=== PATIENT | female | born 1955 | race Caucasian/White ===

== ENCOUNTER 2017-08-01 19:43 | Emergency (ER) | payer BC ==
[2017-08-01 21:08] LABS: Urine Blood 1+ (NEG); Urine Glucose NEGATIVE (NEG); Urine Protein NEGATIVE (NEG); Urine pH 5.5 (5.0-7.0)
[2017-08-01 21:48] LABS: Absolute Lymphocytes (CBC) 1.9 K/uL (0.7-4.9); Absolute Monocytes 1.3 K/uL (0.1-1.3); Absolute Neutrophil 19.9 K/uL (1.8-8.0); Basophils % 0.2 % (0-1.3); Eosinophils % 1.4 % (0-4.4); Hematocrit 45.1 % (36.0-45.0); Lymphocytes % 8.1 % (15.3-44.8); MCH 31.1 pg (27.0-35.0); MCV 91.1 fL (80-100); MPV 8.4 fL (7.6-11.3); Monocytes % 5.7 % (3.3-12.3); RBC Red Blood Cell Count 4.95 M/uL (3.86-4.86)
[2017-08-01] MEDS ORDERED: MORPHINE 4 MG/ML SYR ONE (21:51)
[2017-08-01] MEDS ORDERED: ONDANSETRON 4 MG/2 ML VIAL ONE (21:52)
[2017-08-01] MEDS ORDERED: NA CHLORIDE 0.9% 1,000 ML ONE (21:52)
[2017-08-01] MEDS ORDERED: FAMOTIDINE 20 MG/2 ML VIAL IV ONE (21:52)
[2017-08-01 21:55] LABS: Potassium 3.2 mEq/L (3.6-5.0)
[2017-08-01 22:02] LABS: Albumin 4.4 g/dL (3.2-5.5); Bilirubin Direct 0.1 mg/dL (0-0.2); Bilirubin Total 0.3 mg/dL (0.3-1.2); Protein, Total 7.6 g/dL (6.0-8.3)
[2017-08-01 22:23] LABS: Blood Morphology Comment NOT SEEN (NOT SEEN); Platelet Estimate ADEQ
[2017-08-01] MEDS ORDERED: KETOROLAC 30 MG/ML INJ ONE (23:01)
[2017-08-01] MEDS ORDERED: LIDOCAINE VISCOUS 2% SOLN 15 ML UDC ONE (23:20)
[2017-08-01] MEDS ORDERED: MAGNE/ALUM HYDROXD 30 ML UCUP ONE (23:20)
[2017-08-02 00:16] LABS: Urine Bacteria 20-50 /HPF (<20); Urine Culture Reflex Order REFLEXED; Urine RBC <5 /HPF (NONE SEEN)
[2017-08-02] MEDS ORDERED: METRONIDAZOLE 500mg IVPB 500 MG/100 ML BAG IV ONE (00:37)
[2017-08-02] MEDS ORDERED: CIPROFLOXACIN 400mg IV 400 MG/200 ML BAG IV ONE (00:37)
[2017-08-02] MEDS ORDERED: MEPERIDINE HCL 25 MG/0.5 ML ONE (00:45)
--- NOTE | 2017-08-02 01:55 | EDPHYS ---
Physician Documentation [facility] Name: Yany Gil Age: 61 yrs Sex: Female : 1955 Arrival Date: 08/01/2017 Time: 19:49 Bed 5 Private MD: ED Physician Victoriano Khoury HPI: 08/01 21:40 This 61 yrs old Female presents to ER via Ambulatory with complaints of kdr Abdominal Pain, Flank Pain, Nausea/Vomiting. 21:40 The patient complains of pain in the left mid back. To left flank and upper abdomen. kdr Onset: The symptoms/episode began/occurred acutely, suddenly, just prior to arrival. Modifying factors: The symptoms are alleviated by nothing. the symptoms are aggravated by nothing. Associated signs and symptoms: Pertinent positives: diarrhea, nausea. Severity of pain: At its worst the pain was moderate severe just prior to arrival, in the emergency department the pain has improved. The patient has not experienced similar symptoms in the past. The patient has not recently seen a physician. Historical: - Allergies: 20:18 PENICILLINS; ak1 - Home Meds: 20:18 None [Active]; ak1 - PMHx: 20:18 None; ak1 - PSHx: 20:18 ; Appendectomy; Cholecystectomy; right leg sx; right hand sx; ak1 - Immunization history:: Adult Immunizations unknown. - Social history:: Smoking status: Patient uses tobacco products, smokes two packs cigarettes per day. - Ebola Screening: : No symptoms or risks identified at this time. ROS: 21:41 Constitutional: Negative for fever, chills, and weight loss, Eyes: Negative for injury, kdr pain, redness, and discharge, Neck: Negative for injury, pain, and swelling, Cardiovascular: Negative for chest pain, palpitations, and edema, Respiratory: Negative for shortness of breath, cough, wheezing, and pleuritic chest pain, : Negative for injury, bleeding, discharge, and swelling, MS/Extremity: Negative for injury and deformity, Skin: Negative for injury, rash, and discoloration, Neuro: Negative for headache, weakness, numbness, tingling, and seizure activity. Psych: Negative for depression, anxiety, suicide ideation, homicidal ideation, and hallucinations, Allergy/Immunology: Negative for hives, rash, and allergies, Endocrine: Negative for neck swelling, polydipsia, polyuria, polyphagia, and marked weight changes, Hematologic/Lymphatic: Negative for swollen nodes, abnormal bleeding, and unusual bruising. 21:41 Abdomen/GI: Positive for abdominal pain, nausea, vomiting, and diarrhea, Negative for abdominal cramps, abdominal distension, dysphagia, hematemesis, black/tarry stool, rectal pain, rectal bleeding, bowel incontinence. 21:41 Back: Positive for pain at rest, flank pain, on the left. Exam: 21:41 Constitutional: This is a well developed, well nourished patient who is awake, alert, kdr and in no acute distress. Head/Face: Normocephalic, atraumatic. Eyes: Pupils equal round and reactive to light, extra-ocular motions intact. Lids and lashes normal. Conjunctiva and sclera are non-icteric and not injected. Cornea within normal limits. Periorbital areas with no swelling, redness, or edema. Neck: Trachea midline, no thyromegaly or masses palpated, and no cervical lymphadenopathy. Supple, full range of motion without nuchal rigidity, or vertebral point tenderness. No Meningismus. Chest/axilla: Normal chest wall appearance and motion. Nontender with no deformity. No lesions are appreciated. Cardiovascular: Regular rate and rhythm with a normal S1 and S2. No gallops, murmurs, or rubs. Normal PMI, no JVD. No pulse deficits. Respiratory: Lungs have equal breath sounds bilaterally, clear to auscultation and percussion. No rales, rhonchi or wheezes noted. No increased work of breathing, no retractions or nasal flaring. Skin: Warm, dry with normal turgor. Normal color with no rashes, no lesions, and no evidence of cellulitis. MS/ Extremity: Pulses equal, no cyanosis. Neurovascular intact. Full, normal range of motion. Neuro: Awake and alert, GCS 15, oriented to person, place, time, and situation. Cranial nerves II-XII grossly intact. Motor strength 5/5 in all extremities. Sensory grossly intact. Cerebellar exam normal. Normal gait. Psych: Awake, alert, with orientation to person, place and time. Behavior, mood, and affect are within normal limits. 21:41 Abdomen/GI: Inspection: obese Bowel sounds: diminished, in all quadrants, Palpation: soft, mild abdominal tenderness, in the epigastric area, posterior aspect of left lateral abdomen, anterior aspect of left lateral abdomen, right upper quadrant and left upper quadrant, rebound tenderness, is not appreciated. Vital Signs: 20:18 BP 138 / 100; Pulse 103; Resp 18; Temp 98.7(TE); Pulse Ox 98% on R/A; Weight 58.97 kg ak1 (R); Height 5 ft. 0 in. (152.40 cm) (R); Pain 10/10; 21:36 BP 130 / 77; Pulse 92; Resp 16; Pulse Ox 99% on R/A; Pain 8/10; ao 22:35 BP 128 / 76; Pulse 82; Resp 16; Pulse Ox 100% ; Pain 0/10; ao 23:28 BP 132 / 76; Pulse 88; Resp 18; Pulse Ox 99% on R/A; ao 08/02 00:26 BP 135 / 81; Pulse 82; Resp 18; Pulse Ox 100% on R/A; ao 08/01 20:18 Body Mass Index 25.39 (58.97 kg, 152.40 cm) ak MDM: 08/01 21:41 Data reviewed: vital signs, nurses notes, lab test result(s). Counseling: I had a kdr detailed discussion with the patient and/or guardian regarding: the historical points, exam findings, and any diagnostic results supporting the discharge/admit diagnosis, lab results, radiology results. 21:46 Patient medically screened. [facility] 08/02 02:19 ED course: I discussed with the patient the need for admission. Labs and ct imaging [facility] findings were discussed. The patient refused admission. signed out against medical advice. patient given strict return precautions. patient understood. 08/01 20:28 Order name: Urine Dipstick--Ancillary (enter results); Complete Time: 22:56 [facility] 08/01 20:59 Order name: Amylase, Serum; Complete Time: 22:56 [facility] 08/01 20:59 Order name: Basic Metabolic Panel; Complete Time: 22:56 [facility] 08/01 20:59 Order name: CBC with Diff; Complete Time: 22:56 [facility] 08/01 20:59 Order name: Creatinine for Radiology; Complete Time: 22:56 [facility] 08/01 20:59 Order name: Hepatic Function; Complete Time: 22:56 [facility] 08/01 20:59 Order name: Lipase; Complete Time: 22:56 kdr 08/01 20:59 Order name: Urine Microscopic Only; Complete Time: 00:30 kdr 08/01 21:39 Order name: CT Stone Protocol [facility] 08/01 22:23 Order name: Manual Differential; Complete Time: 22:56 [facility] 08/02 00:17 Order name: Urine Culture [facility] 08/01 20:28 Order name: Urine Dipstick-Ancillary (obtain specimen); Complete Time: 20:28 ak 08/01 20:59 Order name: IV Saline Lock; Complete Time: 21:34 kdr 08/01 20:59 Order name: Labs collected and sent; Complete Time: 21:34 kdr Administered Medications: 08/01 22:00 Drug: NS 0.9% 1000 ml Route: IV; Rate: 1 bolus; Site: right forearm; ao 23:22 Follow up: IV Status: Completed infusion; IV Intake: 1000ml ao 22:00 Drug: Pepcid 20 mg Route: IVP; Site: right forearm; ao 23:22 Follow up: Response: No adverse reaction ao 22:02 Drug: morphine 4 mg Route: IVP; Site: right forearm; ao 23:22 Follow up: Response: No adverse reaction; Pain is unchanged, physician notified ao 22:06 Drug: Zofran 4 mg Route: IVP; Site: right forearm; ao 23:22 Follow up: Response: No adverse reaction ao 23:21 Drug: Ketorolac 30 mg Route: IVP; Site: right forearm; ao 08/02 00:39 Follow up: Response: No adverse reaction ao 08/01 23:22 Drug: GI Cocktail without - (Maalox Suspension 30 ml, Lidocaine Liquid 2 % 15 ao ml) Route: PO; 08/02 00:39 Follow up: Response: No adverse reaction ao 00:38 Drug: Cipro 400 mg Volume: 200 ml; Route: IVPB; Infused Over: 60 mins; Site: right ao forearm; 02:00 Follow up: IV Status: Completed infusion; IV Intake: 200ml ao 00:52 Drug: Flagyl 500 mg Volume: 100 ml; Route: IVPB; Rate: 200 ml/hr; Infused Over: 30 ao mins; Site: right forearm; 03:00 Follow up: IV Status: Completed infusion; IV Intake: 100ml ao 00:53 Drug: Demerol 25 mg Route: IVP; Site: right forearm; ao 03:00 Follow up: Response: No adverse reaction ao Disposition: 08/02/17 01:55 Patient has left against medical advice. - Patients states they are going to Home. - Condition is Stable. - Discharge Instructions: Diverticulitis. - Prescriptions for Flagyl 500 mg Oral Tablet - take 1 tablet by ORAL route every 6 hours for 10 days; 40 tablet. Cipro 500 mg Oral Tablet - take 1 tablet by ORAL route every 12 hours for 7 days; 20 tablet. Tramadol 50 mg Oral Tablet - take 1 tablet by ORAL route every 8 hours as needed; 12 tablet. Addendum: 08/03/2017 07:58 Co-signature as Attending Physician, Victoriano Khoury MD I agree with the assessment and k dr plan of care. Signatures: Dispatcher [employer] EDVictoriano Quan MD MD kdr Eron Lo PA PA jmm Krenek, Amber, RN RN ak1 Christopher Larson RN RN ao Corrections: (The following items were deleted from the chart) 08/02 01:55 01:55 08/02/2017 01:55 Patients has left against medical advice. Patient states they ao are going to Home. Condition is Stable. Discharge Instructions: Diverticulitis. Prescriptions for Flagyl 500 mg Oral Tablet - take 1 tablet by ORAL route every 6 hours for 10 days; 40 tablet, Cipro 500 mg Oral Tablet - take 1 tablet by ORAL route every 12 hours for 7 days; 20 tablet, Tramadol 50 mg Oral Tablet - take 1 tablet by ORAL route every 8 hours as needed; 12 tablet ao
--- NOTE | 2017-08-02 01:55 | ER ---
Nurse's Notes [facility] Name: Yany Gil Age: 61 yrs Sex: Female : 1955 Arrival Date: 08/01/2017 Time: 19:49 Bed 5 Private MD: Diagnosis: Presentation: 08/01 20:17 Presenting complaint: Patient states: left flank pain started at 1530. pt stated she ak1 vomited once and began having abd cramps. no vomiting noted in triage or ER lobby. Transition of care: patient was not received from another setting of care. Onset of symptoms was August 01, 2017 at 15:30. Risk Assessment: Do you want to hurt yourself or someone else? Patient reports no desire to harm self or others. Initial Sepsis Screen: Does the patient meet any 2 criteria? No. Patient's initial sepsis screen is negative. Does the patient have a suspected source of infection? No. Patient's initial sepsis screen is negative. Care prior to arrival: None. 20:17 Method Of Arrival: Ambulatory ak1 20:17 Acuity: BAR 3 ak1 Triage Assessment: 20:18 General: Appears in no apparent distress. Behavior is calm, cooperative. Pain: ak1 Complains of pain in abd, left flank. EENT: No signs and/or symptoms were reported regarding the EENT system. Neuro: No deficits noted. Cardiovascular: No deficits noted. Respiratory: No deficits noted. GI: Abdomen is round Reports lower abdominal pain, upper abdominal pain, cramping, nausea, vomiting. : Reports pain in left flank(s). Derm: No signs and/or symptoms reported regarding the dermatologic system. Musculoskeletal: No signs and/or symptoms reported regarding the musculoskeletal system. Historical: - Allergies: 20:18 PENICILLINS; ak1 - Home Meds: 20:18 None [Active]; ak1 - PMHx: 20:18 None; ak1 - PSHx: 20:18 ; Appendectomy; Cholecystectomy; right leg sx; right hand sx; ak1 - Immunization history:: Adult Immunizations unknown. - Social history:: Smoking status: Patient uses tobacco products, smokes two packs cigarettes per day. - Ebola Screening: : No symptoms or risks identified at this time. Screenin:20 Abuse screen: Denies threats or abuse. Denies injuries from another. Nutritional ak1 screening: No deficits noted. Tuberculosis screening: No symptoms or risk factors identified. Fall Risk None identified. Assessment: 21:34 General: Appears in no apparent distress. uncomfortable, Behavior is calm, cooperative, ao appropriate for age. Pain: Complains of pain in back Pain currently is 8 out of 10 on a pain scale. Neuro: Level of Consciousness is awake, alert, obeys commands, Oriented to person, place, time, situation, Appropriate for age Moves all extremities. Speech is normal, Facial symmetry appears normal. Cardiovascular: Capillary refill < 3 seconds Patient's skin is warm and dry. Respiratory: Airway is patent Respiratory effort is even, unlabored, Respiratory pattern is regular, symmetrical. GI: Bowel sounds present X 4 quads. Abd is soft and non tender X 4 quads. Abd is non tender Reports nausea, vomiting, since 1600. : No signs and/or symptoms were reported regarding the genitourinary system. EENT: No signs and/or symptoms were reported regarding the EENT system. Derm: Skin is pink, warm \T\ dry. Skin temperature is warm. Musculoskeletal: Circulation, motion, and sensation intact. Range of motion: intact in all extremities. 22:35 Reassessment: Patient appears in no apparent distress at this time. Patient and/or ao family updated on plan of care and expected duration. Pain level reassessed. Patient is alert, oriented x 3, equal unlabored respirations, skin warm/dry/pink. Patient CO headache after she got Morphine. 23:26 Reassessment: Patient appears in no apparent distress at this time. Patient and/or ao family updated on plan of care and expected duration. Pain level reassessed. Patient is alert, oriented x 3, equal unlabored respirations, skin warm/dry/pink. Patient denies headache at this time. 0612 00:26 Reassessment: Patient appears in no apparent distress at this time. Patient and/or ao family updated on plan of care and expected duration. Pain level reassessed. Patient is alert, oriented x 3, equal unlabored respirations, skin warm/dry/pink. Waiting on providers dispo. 00:39 Reassessment: RENITA Mora at bedside talking to patient. Patient stated that she is not ao able to stay in the hospital and needs to be discharge. Patient agree to get antibiotics and leave AMA. 01:29 Reassessment: Patient appears in no apparent distress at this time. Patient and/or ao family updated on plan of care and expected duration. Pain level reassessed. Patient is alert, oriented x 3, equal unlabored respirations, skin warm/dry/pink. Waiting on Antibiotic to be complete before patient can let go. Vital Signs: 08/01 20:18 BP 138 / 100; Pulse 103; Resp 18; Temp 98.7(TE); Pulse Ox 98% on R/A; Weight 58.97 kg ak1 (R); Height 5 ft. 0 in. (152.40 cm) (R); Pain 10/10; 21:36 BP 130 / 77; Pulse 92; Resp 16; Pulse Ox 99% on R/A; Pain 8/10; ao 22:35 BP 128 / 76; Pulse 82; Resp 16; Pulse Ox 100% ; Pain 0/10; ao 23:28 BP 132 / 76; Pulse 88; Resp 18; Pulse Ox 99% on R/A; ao 08/02 00:26 BP 135 / 81; Pulse 82; Resp 18; Pulse Ox 100% on R/A; ao 08/01 20:18 Body Mass Index 25.39 (58.97 kg, 152.40 cm) ak1 ED Course: 08/01 19:49 Patient arrived in ED. es 20:18 Triage completed. ak1 20:18 Arm band placed on Patient placed in waiting room, Patient notified of wait time. Urine ak1 obtained. 20:59 Victoriano Khoury MD is Attending Physician. kdr 21:12 Christopher Larson, RN is Primary Nurse. ao 21:37 Patient has correct armband on for positive identification. Pulse ox on. NIBP on. ao 21:45 Eron Lo PA is PHCP. kdr 21:52 Notified Nurse Practitioner and/or Physician Clinical Laboratory Technologist of a critical lab result(s), wbc fc of 23.5. 22:00 Inserted saline lock: 22 gauge in right forearm, using aseptic technique. ao 22:[address] via stretcher. eh 22:27 CT completed. Patient tolerated procedure well. Patient moved back from CT. eh 22:31 CT Stone Protocol In Process Unspecified. EDMS 08/02 01:54 No provider procedures requiring assistance completed. IV discontinued, intact, ao bleeding controlled, No redness/swelling at site. Pressure dressing applied. Administered Medications: 08/01 22:00 Drug: NS 0.9% 1000 ml Route: IV; Rate: 1 bolus; Site: right forearm; ao 23:22 Follow up: IV Status: Completed infusion; IV Intake: 1000ml ao 22:00 Drug: Pepcid 20 mg Route: IVP; Site: right forearm; ao 23:22 Follow up: Response: No adverse reaction ao 22:02 Drug: morphine 4 mg Route: IVP; Site: right forearm; ao 23:22 Follow up: Response: No adverse reaction; Pain is unchanged, physician notified ao 22:06 Drug: Zofran 4 mg Route: IVP; Site: right forearm; ao 23:22 Follow up: Response: No adverse reaction ao 23:21 Drug: Ketorolac 30 mg Route: IVP; Site: right forearm; ao 08/02 00:39 Follow up: Response: No adverse reaction ao 08/01 23:22 Drug: GI Cocktail without - (Maalox Suspension 30 ml, Lidocaine Liquid 2 % 15 ao ml) Route: PO; 08/02 00:39 Follow up: Response: No adverse reaction ao 00:38 Drug: Cipro 400 mg Volume: 200 ml; Route: IVPB; Infused Over: 60 mins; Site: right ao forearm; 02:00 Follow up: IV Status: Completed infusion; IV Intake: 200ml ao 00:52 Drug: Flagyl 500 mg Volume: 100 ml; Route: IVPB; Rate: 200 ml/hr; Infused Over: 30 ao mins; Site: right forearm; 03:00 Follow up: IV Status: Completed infusion; IV Intake: 100ml ao 00:53 Drug: Demerol 25 mg Route: IVP; Site: right forearm; ao 03:00 Follow up: Response: No adverse reaction ao Intake: 08/01 23:22 IV: 1000ml; Total: 1000ml. ao 08/02 02:00 IV: 200ml; Total: 1200ml. ao 03:00 IV: 100ml; Total: 1300ml. ao Outcome: 01:54 AMA AMA form signed ao 01:54 Condition: stable 01:54 Discharge instructions given to patient, Instructed on discharge instructions, follow up and referral plans. Demonstrated understanding of instructions, follow-up care, medications, Prescriptions given X 2. 01:55 Patient left the ED. ao Signatures: Dispatcher [employer] Victoriano Garcia MD MD kdr Mickail, Joel, PA PA jmm Salyer, Edna es Hagler, Ervin eh Chretien, Felicia RN RN Jerri Richards RN RN ak1 Christopher Larson RN RN ao Corrections: (The following items were deleted from the chart) 08/01 21:53 21:52 Notified ED physician of a critical lab result(s). wbc of 23.5 [facility] 23:28 21:35 BP 132 / 76; Pulse 88bpm; Resp 18bpm; Pulse Ox 99% RA; ao ao
[2017-08-02 04:19] VITALS: TEMP 98.7
[2017-08-02 04:24] VITALS: BP 135/81; O2SAT 100
--- NOTE | 2017-08-02 08:15 | RAD REPORT ---
EXAM DESCRIPTION: CT - Stone Protocol - 08/02/2017 3:38 am CLINICAL HISTORY: Abdominal pain. Left flank pain and vomiting COMPARISON: None. TECHNIQUE: Computed axial tomography of the abdomen pelvis was obtained without oral or IV contrast. Lack of IV and oral contrast limits evaluation of solid organs, bowel, and vessels. Coronal reformat ronan images were obtained and reviewed. A preliminary report was generated by [employer] and reviewed prior to this dictation All CT scans are performed using dose optimization technique as appropriate and may include automated exposure control or mA/KV adjustment according to patient size. FINDINGS: A renal calculus is not seen. An ureteral calculus is not noted. A bladder calculus is not present. The liver, spleen, pancreas and adrenals appear grossly normal. The gallbladder has been removed Diverticula stem from the colon. There is minimal stranding adjacent to the sigmoid colon. An umbilical hernia is present. The neck measures 2 centimeters. Atherosclerotic changes involve the arteries. IMPRESSION: Negative for a genitourinary calculus Minimal sigmoid diverticulitis
== END 2017-08-02 01:55 | disposition left against medical advice (07) ==
LOC: ER 19:43
DX: R10.9 Unspecified abdominal pain (principal); R11.0 Nausea; R19.7 Diarrhea, unspecified; F17.210 Nicotine dependence, cigarettes, uncomplicated; Z88.0 Allergy status to penicillin
CPT/HCPCS: 36415; 74176; 76377; 80048; 80076; 81003; 81015; 82150; 83690; 85025; 87086; 87088; 96361; 96365; 96366; 96368; 96375; 99284; J0744; J2175; J2405; J7030

== ENCOUNTER 2017-08-12 17:21 | Observation (INO) | payer BC ==
[2017-08-12 18:19] LABS: Urine Blood NEGATIVE (NEG); Urine Glucose NEGATIVE (NEG); Urine Protein NEGATIVE (NEG); Urine Specific Gravity >1.030 (1.005-1.030)
[2017-08-12] MEDS ORDERED: FENTANYL CITR 100 MCG/2 ML ONE (19:22)
[2017-08-12] MEDS ORDERED: ONDANSETRON 4 MG/2 ML VIAL ONE (19:22)
[2017-08-12] MEDS ORDERED: NA CHLORIDE 0.9% 500 ML ONE (19:22)
[2017-08-12] MEDS ORDERED: FAMOTIDINE 20 MG/2 ML VIAL IV ONE (19:23)
[2017-08-12 19:25] LABS: RBC Red Blood Cell Count 4.62 M/uL (3.86-4.86)
[2017-08-12 19:35] LABS: Absolute Monocytes 0.8 K/uL (0.1-1.3); Absolute Neutrophil 5.9 K/uL (1.8-8.0); Hematocrit 42.2 % (36.0-45.0); MCV 91.3 fL (80-100); MPV 8.3 fL (7.6-11.3); Monocytes % 7.5 % (3.3-12.3)
[2017-08-12 19:39] LABS: Urine Bacteria <20 /HPF (<20); Urine Culture Reflex Order NOT NEEDED; Urine RBC <5 /HPF (NONE SEEN)
[2017-08-12 19:41] LABS: ALT/SGPT 25 U/L (12-78); AST/SGOT 16 U/L (15-37); Alkaline Phosphatase 86 U/L (45-117); Amylase Level 32 U/L (25-115); BUN Blood Urea Nitrogen 9 mg/dL (7-18); Bicarbonate 28 mmol/L (21-32); Bilirubin Direct < 0.1 mg/dL (0-0.2); Bilirubin Total 0.2 mg/dL (0.2-1.0); Glucose Level 93 mg/dL (74-106); Lipase 101 U/L (73-393); Magnesium 2.3 mg/dL (1.8-2.4); Potassium 3.5 mmol/L (3.5-5.1); Protein, Total 7.4 g/dL (6.4-8.2); Sodium Level 138 mmol/L (136-145)
--- NOTE | 2017-08-12 21:27 | RAD REPORT ---
EXAM DESCRIPTION: CTAbdomen Pelvis W Contrast - 08/12/2017 9:17 pm CLINICAL HISTORY: Abdominal pain. upper abdomen pain, mid back pain COMPARISON: Stone Protocol dated 08/01/2017 TECHNIQUE: Biphasic CT imaging of the abdomen and pelvis was performed with 100 ml non-ionic IV cont rast. All CT scans are performed using dose optimization technique as appropriate and may include automated exposure control or mA/KV adjustment according to patient size. FINDINGS: The lung bases are clear.Cholecystectomy clips. The liver, spleen, pancreas, adrenal glands and kidneys are within normal limits. No bowel obstruction, free air, free fluid or abscess. Mild sigmoid diverticulosis without diverticul itis. Appendectomy. Small fat containing umbilical hernia. No evidence of significant lymphadenopathy . Postsurgical changes are present at the lumbosacral junction. IMPRESSION: No acute intra-abdominal or pelvic finding.
[2017-08-12] MEDS ORDERED: METRONIDAZOLE 500mg IVPB 500 MG/100 ML BAG IV ONE (21:44)
--- NOTE | 2017-08-12 22:18 | ER ---
Nurse's Notes [facility] Name: Yany Gil Age: 61 yrs Sex: Female : 1955 Arrival Date: 08/12/2017 Time: 17:23 Bed 20 Private MD: None, None Diagnosis: Diverticular disease of intestine, part unspecified, without perforation or abscess;Other abdominal pain-Intractable Presentation: 08/12 17:52 Presenting complaint: Patient states: epigastric pain and back pain x 1 day. c/o iw vomiting. Transition of care: patient was not received from another setting of care. Onset of symptoms was August 11, 2017. Risk Assessment: Do you want to hurt yourself or someone else? Patient reports no desire to harm self or others. Care prior to arrival: None. 17:52 Method Of Arrival: Ambulatory iw 17:52 Acuity: BAR 3 iw 19:48 Initial Sepsis Screen: Does the patient meet any 2 criteria? No. Patient's initial jd3 sepsis screen is negative. Does the patient have a suspected source of infection? No. Patient's initial sepsis screen is negative. Historical: - Allergies: 17:53 PENICILLINS; iw - PMHx: 17:53 Diverticulitis; iw - PSHx: 17:53 ; Appendectomy; Cholecystectomy; right leg sx; right hand sx; iw - Immunization history:: Adult Immunizations up to date. - Social history:: Smoking status: Patient uses tobacco products, smokes one pack cigarettes per day. - Ebola Screening: : No symptoms or risks identified at this time. Screenin:49 Abuse screen: Denies threats or abuse. Nutritional screening: No deficits noted. jd3 Tuberculosis screening: No symptoms or risk factors identified. Fall Risk IV access (20 points). Ambulatory Aid- None/Bed Rest/Nurse Assist (0 pts). Gait- Normal/Bed Rest/Wheelchair (0 pts) Mental Status- Oriented to own ability (0 pts). Total Ramirez Fall Scale indicates No Risk (0-24 pts). Assessment: 19:20 General: Appears uncomfortable, Behavior is calm, cooperative, appropriate for age. jd3 Pain: Complains of pain in back and abdomen Pain at worst was 10 out of 10 on a pain scale. Quality of pain is described as aching, sharp, Is continuous, Also complains of nausea. Neuro: Level of Consciousness is awake, alert, obeys commands, Oriented to person, place, time, situation. Cardiovascular: Heart tones S1 S2 present Capillary refill < 3 seconds Patient's skin is warm and dry. Rhythm is regular. Respiratory: Airway is patent Respiratory effort is even, unlabored, Respiratory pattern is regular, symmetrical, Breath sounds are clear bilaterally. GI: Abdomen is round Bowel sounds present X 4 quads. Abd is soft X 4 quads Abdomen is tender to palpation. : No signs and/or symptoms were reported regarding the genitourinary system. EENT: No signs and/or symptoms were reported regarding the EENT system. Derm: Skin is intact, Skin is dry, Skin is normal, Skin temperature is warm. Musculoskeletal: Circulation, motion, and sensation intact. Range of motion: intact in all extremities. 19:39 Reassessment: CT notified of pt finishing contrast. jd3 20:28 Reassessment: Patient appears in no apparent distress at this time. Patient and/or jd3 family updated on plan of care and expected duration. Pain level reassessed. Patient is alert, oriented x 3, equal unlabored respirations, skin warm/dry/pink. 21:48 Reassessment: Patient appears in no apparent distress at this time. Patient and/or jd3 family updated on plan of care and expected duration. Pain level reassessed. Patient is alert, oriented x 3, equal unlabored respirations, skin warm/dry/pink. 22:45 Reassessment: Patient appears in no apparent distress at this time. Patient and/or jd3 family updated on plan of care and expected duration. Pain level reassessed. Patient is alert, oriented x 3, equal unlabored respirations, skin warm/dry/pink. 23:31 Reassessment: Patient appears in no apparent distress at this time. Patient and/or jd3 family updated on plan of care and expected duration. Pain level reassessed. Patient is alert, oriented x 3, equal unlabored respirations, skin warm/dry/pink. 08/13 00:33 Reassessment: Patient appears in no apparent distress at this time. Patient and/or jd3 family updated on plan of care and expected duration. Pain level reassessed. Patient is alert, oriented x 3, equal unlabored respirations, skin warm/dry/pink. pt reported understanding of need for admission, cardiac technician took pt to floor via wheelchair. Vital Signs: 08/12 17:53 BP 135 / 97; Pulse 73; Resp 18; Temp 98.6; Pulse Ox 98% ; Weight 58.97 kg; Height 5 ft. iw 0 in. (152.40 cm); Pain 10/10; 20:27 BP 147 / 79; Pulse 63; Resp 16 S; Pulse Ox 99% on R/A; Pain 10/10; jd3 21:48 BP 155 / 84; Pulse 67; Resp 16 S; Pulse Ox 99% on R/A; jd3 23:30 BP 150 / 80; Pulse 67; Resp 18 S; Pulse Ox 100% on R/A; jd3 17:53 Body Mass Index 25.39 (58.97 kg, 152.40 cm) iw ED Course: 17:23 Patient arrived in ED. mr 17:24 None, None is Private Physician. mr 17:52 Triage completed. iw 17:53 Arm band placed on left wrist. iw 18:18 Greg Gaona PA is PHCP. cp 18:18 Remy Wilson MD is Attending Physician. cp 19:02 Gabriel Sarmiento RN is Primary Nurse. jd3 19:13 Inserted saline lock: 22 gauge in right forearm, using aseptic technique. Blood jd3 collected. 19:48 Patient has correct armband on for positive identification. Bed in low position. Call jd3 light in reach. Side rails up X 1. Adult w/ patient. 21:16 CT Abd/Pelvis - W/Contrast: may give oral contrast In Process Unspecified. EDMS 21:[address] via stretcher. eh 22:17 Manuel Rosario MD is Hospitalizing Provider. cp 23:31 No provider procedures requiring assistance completed. Patient admitted, IV remains in jd3 place. Administered Medications: 19:24 Not Given (Physician Discretion): morphine 2 mg IVP once jd3 19:25 Drug: NS 0.9% 500 ml Route: IV; Rate: bolus; Site: right forearm; jd3 21:52 Follow up: Response: No adverse reaction; IV Status: Completed infusion; IV Intake: jd3 500ml 19:25 Drug: Zofran 4 mg Route: IVP; Site: right forearm; jd3 21:52 Follow up: Response: No adverse reaction jd3 19:25 Drug: Pepcid 20 mg Route: IVP; Site: right forearm; jd3 21:53 Follow up: Response: No adverse reaction jd3 19:25 Drug: fentaNYL (PF) 25 mcg Route: IVP; Site: right forearm; jd3 21:53 Follow up: Response: No adverse reaction jd3 20:50 Drug: fentaNYL (PF) 25 mcg Route: IVP; Site: right forearm; jd3 21:53 Follow up: Response: No adverse reaction jd3 21:47 Drug: metroNIDAZOLE 500 mg Volume: 100 ml; Route: IVPB; Infused Over: 30 mins; Site: jd3 right forearm; 23:08 Follow up: Response: No adverse reaction; IV Status: Completed infusion jd3 22:14 CANCELLED (Physician Discretion): NS 0.9% 1000 ml IV at 125 ml/hr continuous cp 23:05 Drug: Demerol 25 mg Route: IVP; Site: right forearm; jd3 23:32 Follow up: Response: No adverse reaction; Pain is decreased jd3 23:07 Drug: NS 0.9% 1000 ml Route: IV; Rate: 100 ml/hr; Site: right forearm; jd3 23:32 Follow up: Response: No adverse reaction; IV Status: Infusion continued upon admission jd3 23:07 Drug: LevaQUIN 500 mg Volume: 100 ml; Route: IVPB; Infused Over: 60 mins; Site: right jd3 forearm; 08/13 00:35 Follow up: Response: No adverse reaction; IV Status: Completed infusion jd3 Intake: 08/12 21:52 IV: 500ml; Total: 500ml. jd3 Outcome: 22:18 Decision to Hospitalize by Provider. cp 23:54 Admitted to Med/surg accompanied by tech, via wheelchair, room 210, with chart, Report jd3 called to Claudio DONNELLY 23:54 Condition: stable 23:54 Instructed on the need for admit, Demonstrated understanding of instructions. 08/13 00:35 Patient left the ED. jd3 Signatures: Dispatcher [facility] Yanira Simms Ervin eh Williams, Irene, RN RN iw Page, Corey, PA PA cp Davies, Jonathon, RN RN jonofre Corrections: (The following items were deleted from the chart) 08/12 17:52 17:52 Presenting complaint: Patient states: epigastric pain and back pain x 1 day. iw 19:54 19:[address] via stretcher. [facility]
--- NOTE | 2017-08-12 22:18 | EDPHYS ---
Physician Documentation [facility] Name: Yany Gil Age: 61 yrs Sex: Female : 1955 Arrival Date: 08/12/2017 Time: 17:23 Bed 20 Private MD: None, None ED Physician Remy Wilson HPI: 08/12 18:20 This 61 yrs old Female presents to ER via Ambulatory with complaints of cp Abdominal Pain, Back Pain. 18:20 The patient presents with abdominal pain in the upper abdomen. cp 18:20 Onset: The symptoms/episode began/occurred over 1 week ago, became worse today with cp episode of vomiting. 18:20 Associated signs and symptoms: Pertinent negatives: chest pain, constipation, diarrhea, cp dysuria, fever, hematuria, vomiting blood. 18:20 The symptoms are described as achy, sharp. cp 18:20 Modifying factors: the symptoms are aggravated by pressure. The patient has been cp recently seen at the [facility] Emergency Department, last week, for similar complaints labs were performed, CT scan was performed, diagnosed with diverticulitis. Patient reports she refused admission at that time and was prescribed oral cipro and metronidazole. Patient reports worsening pain today, not being able to eat for past several days. Historical: - Allergies: 17:53 PENICILLINS; iw - PMHx: 17:53 Diverticulitis; iw - PSHx: 17:53 ; Appendectomy; Cholecystectomy; right leg sx; right hand sx; iw - Immunization history:: Adult Immunizations up to date. - Social history:: Smoking status: Patient uses tobacco products, smokes one pack cigarettes per day. - Ebola Screening: : No symptoms or risks identified at this time. ROS: 18:28 Constitutional: Negative for body aches, chills, fever, poor PO intake. cp 18:28 Eyes: Negative for injury, pain, redness, and discharge. cp 18:28 ENT: Negative for drainage from ear(s), ear pain, sore throat, difficulty swallowing, difficulty handling secretions. 18:28 Cardiovascular: Negative for chest pain, edema, palpitations. 18:28 Respiratory: Negative for cough, shortness of breath, wheezing. 18:28 Abdomen/GI: Positive for abdominal pain, nausea, vomiting, anorexia, Negative for diarrhea, constipation, dysphagia, hematemesis, black/tarry stool, rectal bleeding. 18:28 Back: Positive for pain at rest, of the mid back area. 18:28 : Negative for urinary symptoms. 18:28 Skin: Negative for cellulitis, rash. 18:28 Neuro: Negative for altered mental status, dizziness, headache, syncope, near syncope, weakness. 18:28 All other systems are negative. Exam: 18:30 Constitutional: The patient appears in no acute distress, alert, awake, cp non-diaphoretic, non-toxic, well developed, well nourished. 18:30 Head/Face: Normocephalic, atraumatic. Eyes: Pupils equal round and reactive to light, cp extra-ocular motions intact. Lids and lashes normal. Conjunctiva and sclera are non-icteric and not injected. Cornea within normal limits. Periorbital areas with no swelling, redness, or edema. ENT: Nares patent. No nasal discharge, no septal abnormalities noted. Tympanic membranes are normal and external auditory canals are clear. Oropharynx with no redness, swelling, or masses, exudates, or evidence of obstruction, uvula midline. Mucous membranes moist. Chest/axilla: Normal chest wall appearance and motion. Nontender with no deformity. No lesions are appreciated. 18:30 Cardiovascular: Rate: normal, Rhythm: regular, Edema: is not appreciated, JVD: is not appreciated. 18:30 Respiratory: the patient does not display signs of respiratory distress, Respirations: normal, no use of accessory muscles, no retractions, no splinting, no tachypnea, labored breathing, is not present, Breath sounds: are clear throughout, no decreased breath sounds, no stridor, no wheezing. 18:30 Abdomen/GI: Inspection: abdomen appears normal, Bowel sounds: active, all quadrants, Palpation: soft, in all quadrants, moderate abdominal tenderness, in the right upper quadrant and left upper quadrant, rebound tenderness, is not appreciated, voluntary guarding, is not appreciated, involuntary guarding, is not appreciated. 18:30 Back: pain, that is moderate, of the mid back area, ROM is painful, Straight leg raises: of both lower extremities does not illicit pain. 18:30 Skin: cellulitis, is not appreciated, no rash present. 18:30 Neuro: Orientation: to person, place \T\ time. Mentation: is normal, Motor: moves all fours, strength is normal, Sensation: no obvious gross deficits. 19:40 ECG was reviewed by the Attending Physician. cp Vital Signs: 17:53 BP 135 / 97; Pulse 73; Resp 18; Temp 98.6; Pulse Ox 98% ; Weight 58.97 kg; Height 5 ft. iw 0 in. (152.40 cm); Pain 10/10; 20:27 BP 147 / 79; Pulse 63; Resp 16 S; Pulse Ox 99% on R/A; Pain 10/10; jd3 21:48 BP 155 / 84; Pulse 67; Resp 16 S; Pulse Ox 99% on R/A; jd3 23:30 BP 150 / 80; Pulse 67; Resp 18 S; Pulse Ox 100% on R/A; jd3 17:53 Body Mass Index 25.39 (58.97 kg, 152.40 cm) iw MDM: 18:19 Patient medically screened. cp 19:00 Differential diagnosis: gastritis, GI Bleed, pancreatitis, Peptic Ulcer Disease, Perf. cp Duodenal Ulcer, Perf. Gastric Ulcer, Pyelonephritis, Ureterolithiasis, urinary tract infection. 21:53 Physician consultation: Manuel Rosario MD was called at 21:54, unable to leave message. cp 22:15 Data reviewed: vital signs, nurses notes, old medical records, labs, notes, and cp radiology reports from previous visit lab test result(s), radiologic studies, CT scan. 22:15 Response to treatment: the patient's symptoms have mildly improved after treatment, and cp as a result, I will admit patient. 08/12 18:15 Order name: Urine Dipstick--Ancillary (enter results); Complete Time: 18:54 bd 08/12 19:43 Interpretation: Normal except: USPGR >1.030. cp 08/12 18:56 Order name: Amylase, Serum; Complete Time: 19:43 cp 08/12 18:56 Order name: Basic Metabolic Panel; Complete Time: 19:43 cp 08/12 19:43 Interpretation: Normal except: CL 108; GFR 73. cp 08/12 18:56 Order name: CBC with Diff; Complete Time: 19:43 cp 08/12 19:43 Interpretation: Normal except: WBC 10.1. cp 08/12 18:56 Order name: Creatinine for Radiology; Complete Time: 19:43 cp 08/12 18:56 Order name: Hepatic Function; Complete Time: 19:43 cp 08/12 20:41 Interpretation: Within normal limits. cp 08/12 18:56 Order name: Lipase; Complete Time: 19:43 cp 08/12 18:56 Order name: Urine Microscopic Only; Complete Time: 19:43 cp 08/12 18:56 Order name: Troponin I; Complete Time: 20:41 cp 08/12 20:41 Interpretation: Within normal limits: TROP < 0.02. cp 08/12 18:56 Order name: Magnesium; Complete Time: 19:43 cp 08/12 22:36 Order name: CBC with Automated Diff EDMS 08/12 22:36 Order name: CBC with Automated Diff EDMS 08/12 22:36 Order name: Comprehensive Metabolic Panel EDMS 08/12 22:36 Order name: Comprehensive Metabolic Panel EDMS 08/12 18:56 Order name: IV Saline Lock; Complete Time: 19:16 cp 08/12 18:56 Order name: EKG; Complete Time: 18:57 cp 08/12 19:07 Order name: CT Abd/Pelvis - W/Contrast: may give oral contrast; Complete Time: 21:29 cp 08/12 22:36 Order name: CONS Pharmacy Consult EDND 08/12 22:36 Order name: NPO EDND 08/12 18:56 Order name: Labs collected and sent; Complete Time: 19:16 cp 08/12 18:56 Order name: Urine Dipstick-Ancillary (obtain specimen); Complete Time: 19:16 cp 08/12 18:56 Order name: EKG - Nurse/Tech; Complete Time: 19:38 cp EC:40 Rate is 60 beats/min. Rhythm is regular. WV interval is normal. QRS interval is normal. cp QT interval is normal. No ST changes noted. Interpreted by me. Reviewed by me. Administered Medications: 19:24 Not Given (Physician Discretion): morphine 2 mg IVP once jd3 19:25 Drug: NS 0.9% 500 ml Route: IV; Rate: bolus; Site: right forearm; jd3 21:52 Follow up: Response: No adverse reaction; IV Status: Completed infusion; IV Intake: jd3 500ml 19:25 Drug: Zofran 4 mg Route: IVP; Site: right forearm; jd3 21:52 Follow up: Response: No adverse reaction jd3 19:25 Drug: Pepcid 20 mg Route: IVP; Site: right forearm; jd3 21:53 Follow up: Response: No adverse reaction jd3 19:25 Drug: fentaNYL (PF) 25 mcg Route: IVP; Site: right forearm; jd3 21:53 Follow up: Response: No adverse reaction jd3 20:50 Drug: fentaNYL (PF) 25 mcg Route: IVP; Site: right forearm; jd3 21:53 Follow up: Response: No adverse reaction jd3 21:47 Drug: metroNIDAZOLE 500 mg Volume: 100 ml; Route: IVPB; Infused Over: 30 mins; Site: jd3 right forearm; 23:08 Follow up: Response: No adverse reaction; IV Status: Completed infusion jd3 22:14 CANCELLED (Physician Discretion): NS 0.9% 1000 ml IV at 125 ml/hr continuous cp 23:05 Drug: Demerol 25 mg Route: IVP; Site: right forearm; jd3 23:32 Follow up: Response: No adverse reaction; Pain is decreased jd3 23:07 Drug: NS 0.9% 1000 ml Route: IV; Rate: 100 ml/hr; Site: right forearm; jd3 23:32 Follow up: Response: No adverse reaction; IV Status: Infusion continued upon admission jd3 23:07 Drug: LevaQUIN 500 mg Volume: 100 ml; Route: IVPB; Infused Over: 60 mins; Site: right d3 forearm; 08/13 00:35 Follow up: Response: No adverse reaction; IV Status: Completed infusion jd3 Disposition: 08/12/17 22:18 Hospitalization ordered by Manuel Rosario for Inpatient Admission. Preliminary diagnosis are Diverticular disease of intestine, part unspecified, without perforation or abscess, Other abdominal pain - Intractable. - Bed requested for Telemetry/MedSurg (Inpatient). - Status is Inpatient Admission. jd3 - Condition is Stable. - Problem is an ongoing problem. - Symptoms have improved. UTI on Admission? No Addendum: 08/15/2017 19:39 Co-signature as Attending Physician, Remy Wilson MD. r n Signatures: Dispatcher [employer] EDMS Anita Seymour RN RN mw Williams, Irene, RN RN iw Nieto, Roman, MD MD rn Page, Corey, PA PA cp Davies, Jonathon, RN RN jd3 Corrections: (The following items were deleted from the chart) 08/12 22:14 22:14 NS 0.9% 1000 ml IV at 125 ml/hr continuous ordered. cp cp 22:20 22:18 Hospitalization Ordered by Manuel Rosario MD for Inpatient Admission. Preliminary mw diagnosis is Diverticular disease of intestine, part unspecified, without perforation or abscess; Other abdominal pain - Intractable. Bed requested for Telemetry/MedSurg (Inpatient). Status is Inpatient Admission. Condition is Stable. Problem is an ongoing problem. Symptoms have improved. UTI on Admission? No. cp 08/13 00:35 08/12 22:20 08/12/2017 22:18 Hospitalization Ordered by Manuel Rosario MD for Inpatient jd3 Admission. Preliminary diagnosis is Diverticular disease of intestine, part unspecified, without perforation or abscess; Other abdominal pain - Intractable. Bed requested for Telemetry/MedSurg (Inpatient). Status is Inpatient Admission. Condition is Stable. Problem is an ongoing problem. Symptoms have improved. UTI on Admission? No. mw
[2017-08-12] MEDS ORDERED: ONDANSETRON 4 MG/2 ML VIAL IV PRN (22:34)
[2017-08-12] MEDS ORDERED: ACETAMINOPHEN 500 MG TAB PO PRN (22:34)
[2017-08-12] MEDS ORDERED: MEPERIDINE HCL 25 MG/0.5 ML ONE (22:57)
[2017-08-12] MEDS ORDERED: Levofloxacin500mg IV 500 MG/100 ML BAG IV ONE (22:58)
[2017-08-12] MEDS ORDERED: NA CHLORIDE 0.9% 1,000 ML ONE (22:58)
[2017-08-12] MEDS ORDERED: Levofloxacin500mg IV 500 MG/100 ML BAG IV SCH (23:00)
[2017-08-13] MEDS: NA CHLORIDE 0.9% 1,000 ML IV SCH ×2 (00:43→12:14)
[2017-08-13] MEDS ORDERED: TEMAZEPAM 15 MG CAP PO ONE (00:49)
[2017-08-13 01:03] VITALS: BMI 31.1
[2017-08-13] MEDS: MORPHINE 2 MG/ML SYR IV PRN ×3 (02:01→10:15)
[2017-08-13 05:03] VITALS: O2SAT 100
[2017-08-13] MEDS: METRONIDAZOLE 500mg IVPB 500 MG/100 ML BAG IV SCH ×2 (05:21→11:18)
[2017-08-13 05:48] LABS: Absolute Monocytes 0.8 K/uL (0.1-1.3); Absolute Neutrophil 5.2 K/uL (1.8-8.0); Eosinophils % 3.6 % (0-4.4); Lymphocytes % 31.5 % (15.3-44.8); MCH 30.6 pg (27.0-35.0); MCV 92.7 fL (80-100); MPV 8.5 fL (7.6-11.3); Monocytes % 8.9 % (3.3-12.3); RBC Red Blood Cell Count 4.53 M/uL (3.86-4.86)
[2017-08-13 06:09] LABS: ALT/SGPT 25 U/L (12-78); AST/SGOT 20 U/L (15-37); Albumin 3.3 g/dL (3.4-5.0); Alkaline Phosphatase 71 U/L (45-117); BUN Blood Urea Nitrogen 8 mg/dL (7-18); Bicarbonate 28 mmol/L (21-32); Bilirubin Total 0.3 mg/dL (0.2-1.0); Glucose Level 92 mg/dL (74-106); Potassium 3.7 mmol/L (3.5-5.1); Protein, Total 6.3 g/dL (6.4-8.2); Sodium Level 141 mmol/L (136-145)
--- NOTE | 2017-08-13 07:57 | P.HP ---
Certification for Inpatient Patient admitted to: Inpatient With expected LOS: >2 Midnights Patient will require the following post-hospital care: None Practitioner: I am a practitioner with admitting privileges, knowledge of patient current condition, hospital course, and medical plan of care. Services: Services provided to patient in accordance with Admission requirements found in Title 42 Section 412.3 of the Code of Federal Regulations Patient History Date of Service: 08/12/17 Reason for admission: Diverticulitis History of Present Illness: Patient is a 61-year-old female came into the hospital with severe abdominal pain. She has similar pain a few weeks ago and was seen in the emergency room. She was found have diverticulitis around the sigmoid region. She is advised for admission however she had a lot on her plate with her job. She works out of [employer] in [place] since she had too much going on. She decided to go home and she was given oral antibiotics to take for 2 weeks. She has finished the antibiotics and her pain and symptoms had subsided until 0 yesterday. She was getting off a work and she suddenly had severe abdominal pain intractable nausea and vomiting. She denies any diarrhea. She has not had a colonoscopy except 6 years ago which she states was completely normal. Clinically her nausea and vomiting have improved however will keep her on a clear liquid diet. If she tolerates it will advance in the morning to a full liquid diet. She will need IV antibiotics and will reassess her symptoms later tomorrow. Allergies Penicillins Allergy (Verified 08/13/17 01:28) Hives/Rash Home Medications: Ciprofloxacin HCl [Cipro 500 MG Tablet] 1 tab PO BID 08/13/17 Metronidazole 1 tab PO Q6H 08/13/17 traMADol HCL [Ultram*] 1 tab PO TID PRN 08/13/17 - Past Medical/Surgical History Has patient received pneumonia vaccine in the past: No Diabetic: No -: diverticulitis -: C- Section, Appendectomy -: Cholecystectomy, -: Right leg history, Right hand surgery - Family History Mother Medical History: Diabetes, Other (see notes) Notes: Parkinson's - Social History Smoking Status: Heavy Tobacco smoker (>10 cigarettes/day) Alcohol use: No CD- Drugs: No Caffeine use: Yes Review of Systems 10-point ROS is otherwise unremarkable Physical Examination - Vital Signs Temperature: 97.0 F Blood Pressure: 123/68 Pulse: 60 Respirations: 16 Pulse Ox (%): 97 - Physical Exam General: Alert, In no apparent distress, Oriented x3 HEENT: Atraumatic, PERRLA, Mucous membr. moist/pink, EOMI, Sclerae nonicteric Neck: Supple, 2+ carotid pulse no bruit, No LAD, Without JVD or thyroid abnormality Respiratory: Clear to auscultation bilaterally, Normal air movement Cardiovascular: Regular rate/rhythm, Normal S1 S2 Gastrointestinal: Normal bowel sounds, Soft and benign, Non-distended, No rebound, No guarding, Tenderness (In the epigastric region) Musculoskeletal: No clubbing, No tenderness Integumentary: No rashes Neurological: Normal gait, Normal speech, Normal strength at 5/5 x4 extr, Normal tone, Sensation intact, Cranial nerves 3-12 intact, Normal affect Lymphatics: No axilla or inguinal lymphadenopathy - Studies Laboratory Data (last 24 hrs) 08/12/17 19:13: Troponin I < 0.02 08/12/17 19:13: Creatinine 0.70 08/12/17 19:13: WBC 10.1 D, Hgb 14.3, Hct 42.2, Plt Count 289 08/12/17 19:13: Sodium 138, Potassium 3.5, BUN 9, Creatinine 0.80, Glucose 93, Magnesium 2.3, Total Bilirubin 0.2, AST 16, ALT 25, Alkaline Phosphatase 86, Amylase 32, Lipase 101 Assessment & Plan - Problems (Diagnosis) (1) Diverticulitis Current Visit: Yes Status: Acute (2) Intractable nausea and vomiting Current Visit: Yes Status: Acute - Plan 1. Continue with IV hydration 2. Continue with IV antibiotics 3. Continue with pain control 4. NPO 5. GI consultation outpt; outpatient colonoscopy in 6-12 weeks 6. Serial H&H, and we will monitor CBC, BMP, LFTs and lipase along with electrolytes. 7. GI and DVT prophylaxis Discharge Plan: Home Plan to discharge in: Greater than 2 days - Advance Directives Does patient have a Living Will: No Does patient have a Durable POA for Healthcare: No - Code Status/Comfort Care Code Status Assessed: Yes Code Status: Full Code Critical Care: No Time Spent Managing PTS Care (In Minutes): 50
--- NOTE | 2017-08-13 11:29 | P.SSS ---
Patient History Date of Service: 08/13/17 Reason for admission: Diverticulitis History of Present Illness: Patient is a 61-year-old female came into the hospital with severe abdominal pain. She has similar pain a few weeks ago and was seen in the emergency room. She was found have diverticulitis around the sigmoid region. She is advised for admission however she had a lot on her plate with her job. She works out of [employer] in an since she had too much going on. She decided to go home and she was given oral antibiotics to take for 2 weeks. She has finished the antibiotics and her pain and symptoms had subsided until 0 yesterday. She was getting off a work and she suddenly had severe abdominal pain intractable nausea and vomiting. She denies any diarrhea. She has not had a colonoscopy except 6 years ago which she states was completely normal. Clinically her nausea and vomiting have improved however will keep her on a clear liquid diet. If she tolerates it will advance in the morning to a full liquid diet. She will need IV antibiotics and will reassess her symptoms later tomorrow. Allergies Penicillins Allergy (Verified 08/13/17 01:28) Hives/Rash Home Medications: Ciprofloxacin HCl [Cipro 500 MG Tablet] 1 tab PO BID 08/13/17 Metronidazole 1 tab PO Q6H 08/13/17 traMADol HCL [Ultram*] 1 tab PO TID PRN #15 tab 08/13/17 - Past Medical/Surgical History Has patient received pneumonia vaccine in the past: No Diabetic: No -: diverticulitis -: C- Section, Appendectomy -: Cholecystectomy, -: Right leg history, Right hand surgery - Family History Mother -: Diabetes, Other (see notes) Notes: Parkinson's - Social History Smoking Status: Heavy Tobacco smoker (>10 cigarettes/day) Alcohol use: No CD- Drugs: No Caffeine use: Yes Review of Systems General: As per HPI Physical Examination - Vital Signs Temperature: 97.9 F Blood Pressure: 126/74 Pulse: 72 Respirations: 16 Pulse Ox (%): 98 - Physical Exam General: Alert, In no apparent distress HEENT: Atraumatic, PERRLA, Mucous membr. moist/pink, EOMI, Sclerae nonicteric Neck: Supple, 2+ carotid pulse no bruit, No LAD, Without JVD or thyroid abnormality Respiratory: Clear to auscultation bilaterally, Normal air movement Cardiovascular: Regular rate/rhythm, Normal S1 S2 Gastrointestinal: Normal bowel sounds, No tenderness Musculoskeletal: No tenderness Integumentary: No rashes Neurological: Normal gait, Normal speech, Normal strength at 5/5 x4 extr, Normal tone, Normal affect Lymphatics: No axilla or inguinal lymphadenopathy - Studies Laboratory Data (last 24 hrs) 08/12/17 19:13: Troponin I < 0.02 08/12/17 19:13: Creatinine 0.70 08/12/17 19:13: WBC 10.1 D, Hgb 14.3, Hct 42.2, Plt Count 289 08/12/17 19:13: Sodium 138, Potassium 3.5, BUN 9, Creatinine 0.80, Glucose 93, Magnesium 2.3, Total Bilirubin 0.2, AST 16, ALT 25, Alkaline Phosphatase 86, Amylase 32, Lipase 101 - Diagnosis (Problem(s)) (1) Back pain Current Visit: Yes Status: Acute Qualifiers: Back pain location: low back pain Chronicity: chronic Back pain laterality: bilateral Sciatica presence: without sciatica Qualified Code(s) : M54.5 - Low back pain; G89.29 - Other chronic pain (2) Diverticulosis Current Visit: Yes Status: Chronic Qualifiers: Diverticulosis site: diverticulosis of small intestine Diverticulosis bleeding: diverticulosis without bleeding Qualified Code(s): K57.10 - Diverticulosis of small intestine without perforation or abscess without bleeding (3) Intractable nausea and vomiting Current Visit: Yes Status: Resolved Qualifiers: Vomiting type: unspecified Qualified Code(s): R11.2 - Nausea with vomiting , unspecified Treatment Summary: Pt remained stable overnight. Chronic h/o of diverticulosis with recent history of Diverticulitis currently finishing her abx of cipro and flagyl. Admitted for back pain and n/v. Doing better today. No nausea and vomitting noted today. ABD CT negative for Diverticulitis. Denies any abd pain. States she is having back pain on the right and left side. Had surgery at the lumbosacral Area 2 years ago per pt. Advice to f/u with surgeon and pain mgmt doc. No acute abnormality noted on abd CT in regards to lumbosacral area. Continues to smokes and not receptive to therapy. DC home now as symptoms resolved with FU with PCP. Tolerating diet and ambulating well. - Disposition Disposition: ROUTINE DISCHARGE Condition: GOOD Patient Discharge Instructions: Please f/u with PCP and Pain mgmt doctor in 1 week post discharge. No new medication Diet: [place] Activity: Ad le
[2017-08-13 12:32] VITALS: BP 136/91; TEMP 99.1
--- NOTE | 2017-08-15 07:01 | EKG ---
Test Date: 2017-08-12 Test Time: 19:33:23 Pediatrician: SONIYA MEASUREMENT RESULTS: Intervals: Rate: 60 MT: 138 QRSD: 86 QT: 446 QTc: 446 [place]: P: 55 MT: 138 QRS: 61 T: 52 INTERPRETIVE STATEMENTS: Normal sinus rhythm Normal ECG No previous ECG available for comparison Electronically Signed On 08-15-17 07:00:34 CDT by [place]
== END 2017-08-13 12:23 | disposition home or self-care (01) ==
LOC: ER 17:21 → ERHOLD 22:31 → INTOOBSV 22:31 → 2ND 23:55
PROVIDERS: ADMIT Hospitalist; ATTEND Hospitalist
DX: M54.5 Low back pain (principal); R11.2 Nausea with vomiting, unspecified; F17.210 Nicotine dependence, cigarettes, uncomplicated; Z88.0 Allergy status to penicillin
CPT/HCPCS: 36415; 74177; 80048; 80053; 80076; 81003; 81015; 82150; 83690; 83735; 84484; 85025; 93005; 96361; 96365; 96366; 96368; 96375; 99285; G0378; J2175; J2270; J2405; J3010; J7030; Q9967